=== PATIENT | male | born 1975 | race Caucasian/White ===

== ENCOUNTER 2020-12-31 16:35 | Emergency (ER) | payer MEDICAID ==
[~2020-12-31] VITALS: Ht 182.9 cm; Wt 86.5 kg
[2020-12-31 16:38] VITALS: BP 123/71
--- NOTE | 2020-12-31 16:43 | NUR ---
ASSUMED CARE OF PATIENT. PATIENT REPORTS HE ATE SOME NUTS ON A SALAD. PT USED EPI PEN THEN WENT TO URGENT CARE. URGENT CARE GAVE BENADRYL, SOLU-MEDROL AND ALBUTEROL HEAVY THREADER. PT REPORTS HE IS FEELING BETTER. NO AIRWAY COMPROMISE. VS STABLE. CALL LIGHT IN PLACE. WILL CONTINUE TO MONITOR.
--- NOTE | 2020-12-31 17:00 | NUR ---
DR PEDERSON HAS UPDATED PATIENT
== END 2020-12-31 17:08 | disposition home or self-care (01) ==
LOC: ED 17:02 → EDSEX 17:43 → ED 17:43
DX: R20.2 Paresthesia of skin (principal); R06.02 Shortness of breath; T78.1XXA Other adverse food reactions, not elsewhere classified, initial encounter
CPT/HCPCS: 99283